=== PATIENT | male | born 1970 ===

== ENCOUNTER 2016-06-16 13:32 | Emergency (ER) | payer SELFPAY ==
[~2016-06-16] VITALS: Ht 172.7 cm; Wt 81.8 kg
[2016-06-16 13:44] VITALS: Ht 172.7 cm; Wt 81.8 kg
== END 2016-06-16 17:59 | disposition left against medical advice (07) ==
LOC: E/R 13:32
DX: Z53.21 Procedure and treatment not carried out due to patient leaving prior to being seen by health care provider (principal)